=== PATIENT | female | born 1950 | race Caucasian/White ===

== ENCOUNTER 2024-01-18 10:20 | Day surgery (SDC) | payer OTHER, BC ==
[2024-01-11 17:42] VITALS: BMI 25.4
[2024-01-18] MEDS ORDERED: TETRACAINE 0.5% OPHTH SOLN 2 ML BOTTLE ONE (10:58)
[2024-01-18] MEDS ORDERED: LIDOCAINE 1% P/F 10 MG/ML VIAL ONE (10:58)
[2024-01-18] MEDS ORDERED: BSS (NA/CA/MG/K) BALANCED SALT SOLUTION OPHTH SOLN 15 ML BOTTLE ONE (10:58)
[2024-01-18] MEDS ORDERED: NEO/POLYMYX B SULF/DEXAMETH OPHTHALMIC 5ML BOTTLE ONE (10:59)
[2024-01-18] MEDS ORDERED: CARBACHOL 0.01% INTRA-OCULAR 1.5 ML VIAL ONE (10:59)
[2024-01-18] MEDS: PHENYLEPHRINE 2.5% OPTHALMIC DROP 2ML BOTTLE ONE (11:00)
[2024-01-18] MEDS: CYCLOPENTOLATE 2% OPHTH SOLN 2 ML BOTTLE ONE (11:00)
[2024-01-18] MEDS: CIPROFLOXACIN 0.3% EYE DROPS 5 ML BOTTLE ONE (11:00)
[2024-01-18] MEDS: TROPICAMIDE 1% OPHTH SOLN 15 ML BOTTLE ONE (11:00)
[2024-01-18] MEDS ORDERED: MIDAZOLAM HCL 2 MG/2 ML SINGLE DOSE VIAL ONE (13:53)
[2024-01-18] MEDS ORDERED: ACETAMINOPHEN 325 MG TABLET (FP) ONE (14:02)
[2024-01-18 14:18] VITALS: RESP 19; TEMP 97.5
[2024-01-18 14:24] VITALS: BP 110/89; PULSE 68
[2024-01-18] MEDS ORDERED: METOPROLOL TARTRATE 5 MG/5 ML VIAL ONE (14:31)
== END 2024-01-18 14:15 | disposition home or self-care (01) ==
LOC: FASU 10:20
PROVIDERS: ATTEND Ophthalmology
PROC: 08RJ3JZ Replacement of Right Lens with Synthetic Substitute, Percutaneous Approach (ICD-10-PCS; principal; 2024-01-18 13:11)
DX: H26.8 Other specified cataract (principal)
CPT/HCPCS: 66984; V2632

== ENCOUNTER 2025-03-20 09:22 | Day surgery (SDC) | payer OTHER, BC ==
[2025-03-19 11:46] VITALS: BMI 25.4
[2025-03-20] MEDS: CYCLOPENTOLATE 2% OPHTH SOLN 2 ML BOTTLE ONE (09:45)
[2025-03-20] MEDS: PHENYLEPHRINE 2.5% OPTHALMIC DROP 2ML BOTTLE ONE (09:45)
[2025-03-20] MEDS: TROPICAMIDE 1% OPHTH SOLN 15 ML BOTTLE ONE (09:45)
[2025-03-20] MEDS: CIPROFLOXACIN 0.3% EYE DROPS 5 ML BOTTLE ONE (09:45)
[2025-03-20] MEDS ORDERED: MIDAZOLAM HCL 2 MG/2 ML SINGLE DOSE VIAL ONE ×2 (11:35→12:02)
[2025-03-20] MEDS ORDERED: TETRACAINE 0.5% OPHTH SOLN 2 ML BOTTLE ONE (11:43)
[2025-03-20] MEDS ORDERED: BSS (NA/CA/MG/K) BALANCED SALT SOLUTION OPHTH SOLN 15 ML BOTTLE ONE (11:43)
[2025-03-20] MEDS ORDERED: NEO/POLYMYX B SULF/DEXAMETH OPHTHALMIC 5ML BOTTLE ONE (11:43)
[2025-03-20] MEDS ORDERED: LIDOCAINE 1% P/F 10 MG/ML VIAL ONE (11:43)
[2025-03-20 12:42] VITALS: RESP 18; TEMP 97
[2025-03-20 13:36] VITALS: BP 120/60; PULSE 78
== END 2025-03-20 13:25 | disposition home or self-care (01) ==
LOC: FASU 09:22
PROVIDERS: ATTEND Ophthalmology
PROC: 08RK3JZ Replacement of Left Lens with Synthetic Substitute, Percutaneous Approach (ICD-10-PCS; principal; 2025-03-20 12:02)
DX: H26.8 Other specified cataract (principal)
CPT/HCPCS: 66984; V2632